=== PATIENT | male | born 1970 | race Caucasian/White ===

== ENCOUNTER 2018-05-30 01:38 | Emergency (ER) | payer BC ==
--- NOTE | 2018-05-30 01:51 | Emergency Department Record ---
History of Present Illness - General Chief Complaint: Wound, check Stated Complaint: INCISION LEAKING AND STITCHES CAME OUT Time Seen by Provider: 05/30/18 01:39 Source: Patient Mode of arrival: Ambulatory Limitations: No limitations - History of Present Illness Initial Comments: 47 yo male presents with a concern about his surgical incision from Thursday's [place] [facility] [place] He noticed at 5pm there seemed to be some leakage of water serious fluid at the incision. No fevers or chills. No urinary retention. MD Complaint: Wound re-check -: Hour(s) (9) Initial Visit For: Other (surgical incision) Returns Today for: Wound recheck Symptoms Since Prior Visit: Other Associated Symptoms: None - Related Data Home Medications Medication Instructions Recorded Confirmed Last Taken Oxycodone HCl [Oxy Ir] 5 mg PO ASDIR 05/30/18 05/30/18 05/30/18 Sildenafil Citrate [Viagra] 100 mg PO ASDIR 05/30/18 05/30/18 Unknown Previous Rx's Medication Instructions Recorded Cephalexin [Keflex] 500 mg PO TID #21 cap 05/30/18 Allergies Allergy/AdvReac Type Severity Reaction Status Date / Time No Known Drug Allergies Allergy Verified 03/04/14 15:12 Review of Systems Constitutional: Denies: Chills, Fever, Malaise, Weakness Eyes: Denies: Eye discharge ENT: Denies: Congestion, Throat pain Respiratory: Denies: Cough Cardiovascular: Denies: Chest pain, Syncope Endocrine: Denies: Fatigue Gastrointestinal: Denies: Abdominal pain, Diarrhea, Nausea, Vomiting Genitourinary: Denies: Dysuria, Frequency, Hematuria, Testicular pain Musculoskeletal: Denies: Arthralgia, Back pain, Neck pain Skin: Denies: Change in color, Rash Neurological: Denies: Confusion Psychiatric: Denies: Anxiety Hematological/Lymphatic: Denies: Easy bleeding, Easy bruising Physical Exam - General General Appearance: Alert, Oriented x3, Cooperative, No acute distress Limitations: No limitations - Head Head exam: Atraumatic, Normal inspection - Eye Eye exam: Normal appearance - ENT ENT exam: Normal exam Ear exam: Normal external inspection Nasal Exam: Normal inspection Mouth exam: Normal external inspection - Neck Neck exam: Normal inspection - exam: Circumcision, Other (there is about 1cm opening of the scrotal incision , no erythema or pus, small amount of clear serosanguinous drainage.). negative : Scrotal swelling, Testicular tenderness, Urethral discharge - Extremities Extremities exam: Normal inspection - Neurological Neurological exam: Alert, Oriented X3 - Psychiatric Psychiatric exam: Normal affect, Normal mood - Skin Skin exam: Dry, Intact, Normal color, Warm Course - Reevaluation(s) Reevaluation #1: Physician on-call for NICOLE paged 05/30/18 01:50 05/30/18 02:29 NO call back from the patient's urologist or group Pager and message left The area involved is clean without signs of infection. There are no signs of erythema or pus. The area appears to be likely an opening for a small local seroma that drained. I discussed the option to place a single suture to loosely approximate the skin at this time and call his urologist on Thursday We discussed risks of infection and the need for close follow up Thursday Procedure: Incision closure 1cm Betadine skin prep NS irrigation Single interrupted Prolene 5-0 suture placed allow further serous drainage if it occurs The patient is to call his urologist on Thursday We discussed at length reasons to be immediately seen if signs of infection Disposition Disposition: Discharge Clinical Impression: Wound dehiscence Disposition: Home, Self-Care Condition: (1) Good Instructions: Wound Dehiscence (ED) Additional Instructions: Go immediately to the [facility] ER if you have any warmth, redness, pus or concerns about infection Call Dr Richard Thursday to schedule a recheck Take the Keflex as directed until seen Wear supportive underwear The suture placed will need to be removed by Dr Richard in the office Prescriptions: Cephalexin [Keflex] 500 mg PO TID #21 cap Forms: Patient Portal Access Time of Disposition: : Quality - Quality Measures Quality Measures: N/A - Blood Pressure Screening Does Patient Have Any of the Following: No Blood Pressure Classification: Normal BP Reading Systolic Measurement: 116 Diastolic Measurement: 78 Screening for High Blood Pressure: < Normal BP, F/U Not Required > [[id number]]
[2018-05-30] MEDS ORDERED: CEPHALEXIN 500 MG CAPSULE PO STA (02:27)
== END 2018-05-30 02:40 | disposition home or self-care (01) ==
LOC: ER 01:38
DX: T81.31XA Disruption of external operation (surgical) wound, not elsewhere classified, initial encounter (principal); Y83.8 Other surgical procedures as the cause of abnormal reaction of the patient, or of later complication, without mention of misadventure at the time of the procedure
CPT/HCPCS: 12020; 99283